=== PATIENT | male | born 1980 | race Caucasian/White ===

== ENCOUNTER 2016-12-16 02:59 | Emergency (ER) | payer BC ==
[2016-12-16] MEDS ORDERED: Sodium Chloride 0.9% 10 ML Syringe FLUSH PRN (03:00)
[2016-12-16] MEDS ORDERED: Ondansetron 4 MG/2 ML SDV IVPUSH ONE (03:01)
[2016-12-16] MEDS ORDERED: Ketorolac 30 MG/ML SDV IVPUSH ONE (03:02)
[2016-12-16] MEDS ORDERED: Sodium Chloride 0.9% 1,000 ML IV ONE (03:03)
--- NOTE | 2016-12-16 03:15 | EDM.PDOC ---
ED HPI GENERAL MEDICAL PROBLEM - General Chief Complaint: Headache Stated Complaint: migraine Time Seen by Provider: 12/16/16 03:03 Source of Information: Reports: Patient, Family, RN, RN Notes Reviewed History Limitations: Reports: No Limitations - History of Present Illness INITIAL COMMENTS - FREE TEXT/NARRATIVE: Patient presents to the ED at [facility] complaining of a migraine headache that started a couple of hours ago. Patient states he did try Imitrex and Exederin without any relief. He states he feel very nauseated. Complains of photophobia. No vomiting. No known trigger events. No visual field disturbances. Patient states his migraine is located on the right side of his head. Onset: Today Duration: Constant, Getting Worse Location: Reports: Head Quality: Reports: Throbbing Severity: Severe Improves with: Reports: None Worsens with: Reports: Movement Context: Denies: Activity, Exercise, Lifting, Sick Contact, Trauma Associated Symptoms: Reports: Nausea/Vomiting Headache Pain Score (Numeric/FACES): 10 - Related Data Allergies Allergy/AdvReac Type Severity Reaction Status Date / Time No Known Allergies Allergy Verified 12/16/16 02:59 Past Medical History Neurological History: Reports: Headaches, Chronic, Migraines - Past Surgical History GI Surgical History: Reports: Appendectomy Social & Family History - Tobacco Use Smoking Status *Q: Never Smoker - Recreational Drug Use Recreational Drug Use: No ED ROS GENERAL - Review of Systems Review Of Systems: See Below Constitutional: Denies: Fever, Chills, Weakness Respiratory: Denies: Shortness of Breath, Cough Cardiovascular: Denies: Chest Pain, Palpitations GI/Abdominal: Reports: Nausea. Denies: Abdominal Pain, Vomiting Skin: Reports: No Symptoms Neurological: Reports: Dizziness, Headache. Denies: Numbness, Paresthesia, Tingling - Physical Exam Exam: See Below Exam Limited By: No Limitations General Appearance: Alert, No Apparent Distress Eye Exam: Bilateral Eye: EOMI, Normal Inspection, PERRL Ears: Normal External Exam, Normal Canal, Normal TMs Respiratory/Chest: No Respiratory Distress, Lungs Clear, Normal Breath Sounds Cardiovascular: Regular Rate, Rhythm GI/Abdominal: Normal Bowel Sounds, Soft, Non-Tender Neuro Exam (Abbreviated): Alert, Oriented, No Motor/Sensory Deficits Skin Exam: Warm, Dry, Intact, Normal Color, No Rash Course - Vital Signs Last Recorded V/S: Last Vital Signs Temp 36.0 C 12/16/16 03:00 Pulse 78 12/16/16 03:00 Resp 16 12/16/16 03:00 BP 141/100 H 12/16/16 03:00 Pulse Ox 100 12/16/16 03:00 - Orders/Labs/Meds Orders: Active Orders 24 hr Category Date Time Status Sodium Chloride 0.9% [Normal Saline] 1,000 ml Med 12/16/16 03:03 Active IV ONETIME Sodium Chloride 0.9% [Saline Flush] Med 12/16/16 03:00 Active 10 ml FLUSH ASDIRECTED PRN chlorproMAZINE [Thorazine] 50 mg Med 12/16/16 03:02 Active Sodium Chloride 0.9% [Normal Saline] 50 ml IV ONETIME Peripheral IV Insertion Adult [OM.PC] Routine Oth 12/16/16 03:00 Ordered Medication Orders Chlorpromazine HCl 50 mg/ (Sodium Chloride) 52 mls @ 50 mls/hr IV ONETIME ONE Stop: 12/16/16 04:04 Sodium Chloride (Normal Saline) 1,000 mls @ 999 mls/hr IV ONETIME ONE Stop: 12/16/16 04:03 Last Admin: 12/16/16 03:12 Dose: 999 mls/hr Sodium Chloride (Saline Flush) 10 ml FLUSH ASDIRECTED PRN PRN Reason: Keep Vein Open Meds: Medications Generic Name Dose Route Start Last Admin Trade Name Freq PRN Reason Stop Dose Admin Chlorpromazine HCl 50 mg/ 52 mls @ 50 mls/hr 12/16/16 03:02 Sodium Chloride IV 12/16/16 04:04 ONETIME ONE Sodium Chloride 1,000 mls @ 999 mls/hr 12/16/16 03:03 12/16/16 03:12 Normal Saline IV 12/16/16 04:03 999 mls/hr ONETIME ONE Administration Sodium Chloride 10 ml 12/16/16 03:00 Saline Flush FLUSH ASDIRECTED PRN Keep Vein Open Discontinued Medications Generic Name Dose Route Start Last Admin Trade Name Freq PRN Reason Stop Dose Admin Ketorolac Tromethamine 30 mg 12/16/16 03:02 12/16/16 03:17 Toradol IVPUSH 12/16/16 03:03 30 mg ONETIME ONE Administration Ondansetron HCl 4 mg 12/16/16 03:01 12/16/16 03:16 Zofran IVPUSH 12/16/16 03:02 4 mg ONETIME ONE Administration Departure - Departure Time of Disposition: 03:26 Disposition: Home, Self-Care 01 Condition: Good Clinical Impression: Nausea Migraine with aura Qualifiers: Status migrainosus presence: without status migrainosus Intractability: not intractable Qualified Code(s): G43.109 - Migraine with aura, not intractable, without status migrainosus - Discharge Information Instructions: Migraine Headache Referrals: Yumiko Ren PA-C [[facility]] - Forms: ED Department Discharge Additional Instructions: 1. Stay well hydrated and rest 2. Take nausea medications every 8 hours as needed 3. Avoid any known migraine triggers 4. Follow up with your Primary care provider as symptoms warrant - Problem List Review Problem List Initiated/Reviewed/Updated: Yes - My Orders Last 24 Hours: My Active Orders 12/16/16 03:00 Sodium Chloride 0.9% [Saline Flush] 10 ml FLUSH ASDIRECTED PRN Peripheral IV Insertion Adult [OM.PC] Routine 12/16/16 03:02 chlorproMAZINE [Thorazine] 50 mg Sodium Chloride 0.9% [Normal Saline] 50 ml IV ONETIME 12/16/16 03:03 Sodium Chloride 0.9% [Normal Saline] 1,000 ml IV ONETIME - Assessment/Plan Last 24 Hours: My Active Orders 12/16/16 03:00 Sodium Chloride 0.9% [Saline Flush] 10 ml FLUSH ASDIRECTED PRN Peripheral IV Insertion Adult [OM.PC] Routine 12/16/16 03:02 chlorproMAZINE [Thorazine] 50 mg Sodium Chloride 0.9% [Normal Saline] 50 ml IV ONETIME 12/16/16 03:03 Sodium Chloride 0.9% [Normal Saline] 1,000 ml IV ONETIME
[2016-12-16] MEDS ORDERED: SUMAtriptan 6 MG/0.5 ML SDV SUBCUT ONE (04:06)
[2016-12-16] MEDS ORDERED: methylPREDNISolone Sodium Succinate 125 MG/2 ML SDV IVPUSH ONE (04:21)
[2016-12-16] MEDS ORDERED: Promethazine 25 MG in Sodium Chloride 0.9% 100 ML IV ONE (04:22)
[2016-12-16 05:52] VITALS: BP 115/65
== END 2016-12-16 06:42 | disposition home or self-care (01) ==
LOC: VM.ED 02:59
DX: G43.109 Migraine with aura, not intractable, without status migrainosus (principal); Z90.49 Acquired absence of other specified parts of digestive tract
CPT/HCPCS: 70450; 96365; 96367; 96372; 96375; 99284; J1885; J2405; J2550; J2930; J3030; J3230; J7030; J7050